=== PATIENT | male | born 1990 | race Caucasian/White ===

== ENCOUNTER 2016-11-28 18:13 | Emergency (ER) | payer MEDICAID ==
[~2016-11-28] VITALS: Ht 182.8 cm; Wt 111.1 kg
[~2016-11-28 18:13] MED LIST: ALBUTEROL0.09 MG/A2 INH; AMOXICILLIN500 MG PO; AMOXIL500 M1 PO; AUGMENTIN 875-875 MG PO; AUGMENTIN 875875 MG PO; CLARITIN-D 12 H1 TAB PO; CLARITIN10 MG PO; CLINDAMYCIN HC300 MG PO; CORDROL20 MG PO; DEBROX 15ML 1515 ML OT; DEPRESSION MED; DOXYCYCLINE HY100 M3 PO; EES400 MG PO; HYDROCODONE BIT1 T11 PO; KEFLEX500 MG PO; MOTRIN800 MG PO; NKHM; PREDNICOT20 MG PO; PREDNISONE20 MG PO; ROBITUSSIN AC 110 ML PO; SUDAFED60 M1 PO; TESSALON PERLE200 MG PO; TRIMOX500 MG PO; ULTRAM50 MG PO; VICODIN 5/500 505 MG PO; ZITHROMAX Z PA250 MG PO; ZITHROMAX250 MG PO
[2016-11-28 19:09] LABS: BILIRUBIN NEGATIVE (NEGATIVE); BLOOD TRACE-LYSED (NEGATIVE); CLARITY SL CLOUDY (CLEAR); COLOR YELLOW (YELLOW); GLUCOSE NEGATIVE (NEGATIVE); KETONE NEGATIVE (NEGATIVE); LEUKO ESTERASE NEGATIVE (NEGATIVE); NITRITE NEGATIVE (NEGATIVE); PH 5.5 (5.0-9.0); PROTEIN TRACE (NEGATIVE); SPECIFIC GRAVITY >= 1.030 (1.005-1.030)
[2016-11-28 19:17] LABS: BACTERIA 1+; URINE REFLEX COMMENT NO (NO); WBC 0-2 wbc/hpf (0-5)
== END 2016-11-28 19:30 | disposition home or self-care (01) ==
LOC: ED 18:13
PROVIDERS: Nurse Practitioner Family
DX: Z20.2 Contact with and (suspected) exposure to infections with a predominantly sexual mode of transmission (principal); F17.200 Nicotine dependence, unspecified, uncomplicated

== ENCOUNTER 2018-01-16 22:24 | Emergency (ER) | payer OTHER ==
[~2018-01-16] VITALS: Ht 182.8 cm; Wt 102.1 kg
[2018-01-16] MEDS ORDERED: PROAIR HFA8.5 GM INH (23:47)
[2018-01-16] MEDS ORDERED: MEDROL DOSEPAK4 MG PO (23:47)
[2018-01-16] MEDS ORDERED: ZITHROMAX250 MG PO (23:47)
== END 2018-01-17 00:04 | disposition home or self-care (01) ==
LOC: ED 22:24
DX: J20.9 Acute bronchitis, unspecified (principal); M54.2 Cervicalgia; J45.909 Unspecified asthma, uncomplicated; F17.200 Nicotine dependence, unspecified, uncomplicated

== ENCOUNTER 2018-01-23 01:34 | Inpatient (IN) | payer MEDICARE, MEDICAID ==
[2018-01-23] VITALS (9 sets, daily range): BP systolic 111–131; BP diastolic 48–77
[~2018-01-23] VITALS: Ht 198.1 cm; Wt 101.3 kg
[~2018-01-23 01:34] MED LIST changes: +MEDROL DOSEPAK4 MG PO; +PROAIR HFA8.5 GM INH
[2018-01-23 02:12] LABS: BASO % 0.2 % (0.0-1.0); EOS % 0.1 % (1.0-4.0); HEMATOCRIT 39.5 % (42.0-52.0); HEMOGLOBIN 13.5 g/dl (14.0-18.0); LYMPH # 4.4 10*3/uL (1.3-4.4); MEAN CELL VOLUME 89.6 fl (80.0-94.0); MEAN CORPUSCULAR HGB 30.6 pg (27.0-31.0); MEAN CORPUSCULAR HGB CONC 34.2 g/dl (33.0-37.0); MEAN PLATELET VOLUME 9.7 fl (9.6-12.3); MONO # 0.7 10*3/uL (0.1-1.0); MONO % 4.4 % (3.0-9.0); NEUT # 11.2 10*3/uL (2.3-7.9); NEUT % 67.9 % (47.0-73.0); PLATELET COUNT AUTOMATED 276 10*3/uL (130-400); RED BLOOD COUNT 4.41 10*6/uL (4.50-5.90); WHITE BLOOD COUNT 16.4 10*3/uL (4.8-10.8)
[2018-01-23 02:30] LABS: ALBUMIN 4.2 gm/dl (3.1-4.5); ALKALINE PHOSPHATASE 76 U/L (45-117); BUN 11 mg/dl (7-24); CHLORIDE 103 mmol/L (98-107); CREATININE 0.82 mg/dL (0.70-1.30); POTASSIUM 2.8 mmol/L (3.5-5.1); SGOT/AST 16 IU/L (3-35); SGPT/ALT 25 U/L (12-78); SODIUM 140 mmol/L (136-145); TOTAL PROTEIN 7.1 gm/dL (6.4-8.2)
[2018-01-23 02:35] LABS: TROPONIN I < 0.015 ng/ml (<0.045)
[2018-01-23 07:24] LABS: FREE T4 1.1 ng/dl (0.76-1.46); PHOSPHOROUS 3.5 mg/dL (2.5-4.9)
[2018-01-23 07:29] LABS: THYROID STIM HORMONE (HS) 0.985 uIU/ml (0.358-4.75)
[2018-01-24] MEDS ORDERED: OMEPRAZOLE40 MG PO (13:58)
== END 2018-01-23 15:40 | disposition home or self-care (01) | DRG 391 ==
LOC: ED 01:34 → 5E 04:09 → EDHOLD 04:09 → 5E 05:04
PROVIDERS: Emergency Medicine; Internal Medicine
DX: R13.10 Dysphagia, unspecified (principal); J18.9 Pneumonia, unspecified organism; D72.829 Elevated white blood cell count, unspecified; E87.6 Hypokalemia; F17.210 Nicotine dependence, cigarettes, uncomplicated; R73.9 Hyperglycemia, unspecified; Z79.51 Long term (current) use of inhaled steroids; Z83.49 Family history of other endocrine, nutritional and metabolic diseases; Z71.6 Tobacco abuse counseling

== ENCOUNTER 2018-01-23 01:34 | Day surgery (SDC) | payer MEDICARE, MEDICAID ==
[~2018-01-23] VITALS: Ht 182.8 cm; Wt 99.8 kg
--- NOTE | ~2018-01-23 | O ---
[place], [place] OPERATIVE NOTE NAME: TERRI NAVA UNIT #: [id number] ROOM: DOCTOR: CHAD VALDESLOPEZ BIRTHDATE: [birth year] DOS: 01/24/2018 HISTORY OF PRESENT ILLNESS: The patient is a 28-year-old who presented with chief complaint of dysphagia and epigastric distress. PAST MEDICAL HISTORY: Associated with heavy nicotine and caffeinated beverages dependency. He uses greater than 6 packs of Coke and 2 to 3 packs of cigarettes per day. He has his dentition in essentially all decay teeth and rotten at the gingival level and he has been complaining of dysphagia. PROCEDURE: Today's procedure part of investigation is panendoscopy plus biopsy plus esophageal balloon dilation. PREMEDICATION: Versed and propofol. SCOPE: Olympus forward-viewing gastroscope Q10 video. REPORT: After putting the patient in left lateral position and application of lubricant to the scope, the scope was introduced. Thereafter, under direct visualization, advanced through the length of esophagus without difficulty. Esophagus, cervical, thoracic distal within normal limit. Balloon size 18 dilation of the esophagus was carried out because of his cervical dysphagia. Gastric pouch was entered. As soon as I entered the gastric pouch, evidence of degraded blood in the proximal gastric pouch consistent with hemorrhagic proximal gastritis and distal gastric gastritis was noticed. Photographic series obtained biopsies from antrum was obtained, ruling out H. pylori. Duodenal bulb, second and third part within normal limits. The patient extubated, tolerated the procedure well. IMPRESSION: Cervical dysphagia with balloon dilation and hemorrhagic gastritis secondary to excessive volume of carbonated soda per day as well as excessive number of cigarettes per day. PLAN AND DISCUSSION: I have advised the patient that he requires to have his dentition taking care of, perhaps he needs a full mouth dental extraction because of the rotten roots of the retained teeth in his mouth as well as he has to stop smoking and avoiding 6-10 Coke per day. Case discussed with his mother as well and follow up as outpatient. As far as hemorrhagic gastritis is concerned, we are going to give him omeprazole 40 mg 1 every day, 90-day supply and outpatient followup for H. pylori if it becomes positive. Therapy is going to be rendered. [place], [place] OPERATIVE NOTE NAME: TERRI NAVA UNIT #: [id number] ROOM: DOCTOR: LOPEZ BONILLA MD BIRTHDATE: [birth year] LOPEZ BONILLA MD CM:OPRECORD:OPERATIVE NOTE [id number] LOPEZ BONILLA MD 01/25/18 1450 interface
[2018-01-24 12:48] VITALS: BP 128/71
[2018-01-24 13:44] VITALS: BP 118/52
[2018-01-24] MEDS ORDERED: OMEPRAZOLE40 MG PO (13:58)
[2018-01-24 13:59] VITALS: BP 98/44
[2018-01-24 14:14] VITALS: BP 104/70
== END 2018-01-24 | disposition home or self-care (01) ==
LOC: SDC 01-24 09:24 → EDSTATUS 01-24 13:00 → SDC 01-24 13:00
DX: K29.50 Unspecified chronic gastritis without bleeding (principal); R13.19 Other dysphagia; F17.210 Nicotine dependence, cigarettes, uncomplicated; F32.9 Major depressive disorder, single episode, unspecified; Z79.899 Other long term (current) drug therapy; J45.909 Unspecified asthma, uncomplicated

== ENCOUNTER 2018-03-07 08:28 | Emergency (ER) | payer MEDICARE, MEDICAID ==
[~2018-03-07] VITALS: Ht 182.8 cm; Wt 99.8 kg
[~2018-03-07 08:28] MED LIST changes: +OMEPRAZOLE40 MG PO
[2018-03-07] MEDS ORDERED: SEPTDS PO (08:40)
[2018-03-07 08:59] LABS: BILIRUBIN NEGATIVE (NEGATIVE); BLOOD NEGATIVE (NEGATIVE); CLARITY SL CLOUDY (CLEAR); COLOR YELLOW (YELLOW); GLUCOSE NEGATIVE (NEGATIVE); KETONE NEGATIVE (NEGATIVE); LEUKO ESTERASE NEGATIVE (NEGATIVE); NITRITE NEGATIVE (NEGATIVE); PH 5.5 (5.0-9.0); SPECIFIC GRAVITY >= 1.030 (1.005-1.030); UROBILINOGEN 0.2 E.U./dl (0.2-1.0)
[2018-03-07 09:22] LABS: BACTERIA 1+; WBC 0-2 wbc/hpf (0-5)
[2018-03-08 21:02] LABS: GONOCOCCUS BY NAA Negative (Negative)
== END 2018-03-07 09:43 | disposition home or self-care (01) ==
LOC: ED 08:28
PROVIDERS: Emergency Medicine
DX: L73.8 Other specified follicular disorders (principal); F17.200 Nicotine dependence, unspecified, uncomplicated; Z79.899 Other long term (current) drug therapy

== ENCOUNTER → 2018-12-25 | Outpatient (CLI) | payer MEDICARE, MEDICAID ==
[~2018-12-25] MED LIST changes: +SEPTDS PO
== END | disposition home or self-care (01) ==
LOC: RAD 11:28
DX: R05 Cough (principal); F17.200 Nicotine dependence, unspecified, uncomplicated

== ENCOUNTER 2020-11-15 14:21 | Emergency (ER) | payer MEDICARE, MEDICAID ==
[~2020-11-15] VITALS: Ht 182.8 cm; Wt 113.4 kg
[2020-11-15] MEDS ORDERED: TESSALON PERLE100 MG PO (16:04)
[2020-11-15] MEDS ORDERED: PREDNISONE20 M1 PO (16:04)
[2020-11-15] MEDS ORDERED: MUCINEX D ER 11 EACH PO (16:04)
[2020-11-15] MEDS ORDERED: PROVENTIL HFA6.7 GM INH (16:04)
[2020-11-15] MEDS ORDERED: MUCINEX1200 M1 PO (16:06)
== END 2020-11-15 16:19 | disposition home or self-care (01) ==
LOC: ED 14:21
DX: J06.9 Acute upper respiratory infection, unspecified (principal); J20.8 Acute bronchitis due to other specified organisms; J45.909 Unspecified asthma, uncomplicated; F17.290 Nicotine dependence, other tobacco product, uncomplicated; Z79.2 Long term (current) use of antibiotics; Z79.899 Other long term (current) drug therapy

== ENCOUNTER 2024-03-16 18:02 | Emergency (ER) | payer MEDICARE, MEDICAID ==
[~2024-03-16] VITALS: Ht 1828 cm; Wt 106.6 kg
[~2024-03-16 18:02] MED LIST changes: +MUCINEX D ER 11 EACH PO; +MUCINEX1200 M1 PO; +PREDNISONE20 M1 PO; +PROVENTIL HFA6.7 GM INH; +TESSALON PERLE100 MG PO
[2024-03-16 18:51] LABS: BASO % 0.5 % (0.0-1.0); EOS # 0.2 10*3/uL (0.0-0.4); HEMATOCRIT 37.5 % (42.0-52.0); LYMPH # 3.4 10*3/uL (1.3-4.4); LYMPH % 38.9 % (27.0-41.0); MEAN CELL VOLUME 91.2 fl (80.0-94.0); MEAN CORPUSCULAR HGB 30.7 pg (27.0-31.0); MEAN CORPUSCULAR HGB CONC 33.6 g/dl (33.0-37.0); MEAN PLATELET VOLUME 9.4 fl (9.6-12.3); MONO # 0.6 10*3/uL (0.1-1.0); MONO % 6.9 % (3.0-9.0); NEUT # 4.5 10*3/uL (2.3-7.9); NEUT % 51.5 % (47.0-73.0); PLATELET COUNT AUTOMATED 276 10*3/uL (130-400); RED BLOOD COUNT 4.11 10*6/uL (4.50-5.90); RED CELL DISTRI WIDTH 12.9 % (0-14.5); WHITE BLOOD COUNT 8.8 10*3/uL (4.8-10.8)
[2024-03-16 19:09] LABS: BUN 8 mg/dl (9-23); CHLORIDE 108 mmol/L (98-107); POTASSIUM 3.7 mmol/L (3.4-5.1)
[2024-03-16] MEDS ORDERED: AMOX-CLAV 875-1 EACH PO (19:24)
[2024-03-16] MEDS ORDERED: Amoxicillin/Clavulanate Pota 875 MG TAB PO ONE (19:25)
== END 2024-03-16 19:39 | disposition home or self-care (01) ==
LOC: ED 18:02
PROVIDERS: Nurse Practitioner Family
DX: R59.0 Localized enlarged lymph nodes (principal); J02.9 Acute pharyngitis, unspecified; R53.83 Other fatigue; K21.9 Gastro-esophageal reflux disease without esophagitis; F17.200 Nicotine dependence, unspecified, uncomplicated; Z88.8 Allergy status to other drugs, medicaments and biological substances; Z79.899 Other long term (current) drug therapy; Z79.2 Long term (current) use of antibiotics

== ENCOUNTER 2025-03-31 09:42 | Emergency (ER) | payer OTHER, MEDICAID ==
[~2025-03-31] VITALS: Ht 182.8 cm; Wt 113.4 kg
[~2025-03-31 09:42] MED LIST changes: +AMOX-CLAV 875-1 EACH PO
[2025-03-31] MEDS ORDERED: SEPTDS PO (10:01)
[2025-03-31] MEDS ORDERED: Tdap Vaccine 0.5 ML SYR (Adult Vaccine) IM ONE (10:05)
== END 2025-03-31 10:24 | disposition home or self-care (01) ==
LOC: ED 09:42
DX: S80.861A Insect bite (nonvenomous), right lower leg, initial encounter (principal); Z88.8 Allergy status to other drugs, medicaments and biological substances; W57.XXXA Bitten or stung by nonvenomous insect and other nonvenomous arthropods, initial encounter; Y93.89 Activity, other specified; Y92.89 Other specified places as the place of occurrence of the external cause; Y99.8 Other external cause status